=== PATIENT | male | born 1955 | race Caucasian/White ===

== ENCOUNTER 2017-04-09 08:34 | Day surgery (SDC) | payer OTHER ==
[2017-04-09] VITALS (11 sets, daily range): BP systolic 128–166; BP diastolic 70–84; PULSE 80–100; RESP 16–22; Ht 165.1 cm; Wt 84.3 kg
[~2017-04-09] VITALS: Ht 165.1 cm; Wt 84.3 kg
[~2017-04-09 08:34] MED LIST: CYCLOPENTOLATE 1% 2 ML OPH OPER SCH; DICLOFENAC 0.1% 2.5 ML OPH OPER SCH; LACTATED RINGER'S 1,000 ML IV* SCH; MOXIFLOXACIN 0.5% 3 ML OPH OPER SCH; PHENYLephrine 2.5% 15 ML OPH OPER SCH; TROPICAMIDE 1% 15 ML OPH OPER SCH; TROPICAMIDE 1% 2 ML OPH OPER SCH
[2017-04-09] MEDS ORDERED: TRYPAN BLUE 0.5 ML SYG IO SCH (09:30)
[2017-04-09] MEDS ORDERED: TROPICAMIDE 1% 3 ML OPH ONE (09:38)
[2017-04-09] MEDS ORDERED: LOSA25TA5 PO (09:53)
[2017-04-09] MEDS ORDERED: METF1000 PO (09:53)
[2017-04-09] MEDS ORDERED: ATOR20TA38 PO (09:53)
[2017-04-09] MEDS ORDERED: DICL2.5D11 RIGHT EYE (09:54)
[2017-04-09] MEDS ORDERED: VIGA RIGHT EYE (09:54)
[2017-04-09] MEDS ORDERED: PRD1OP5 RIGHT EYE (09:54)
[2017-04-09] MEDS ORDERED: LABETALOL HCL 20MG INJ IV PRN (11:30)
[2017-04-09] MEDS ORDERED: hydrALAzine 20 MG INJ IV PRN (11:30)
[2017-04-09] MEDS ORDERED: ONDANSETRON 4 MG INJ IV PRN (11:30)
[2017-04-09] MEDS ORDERED: OXYCODONE/ACETAMINOPHEN (5/325) TAB PO PRN ×2 (11:30)
[2017-04-09] MEDS ORDERED: MIDAZOLAM 1 MG/ML 2 ML INJ ONE (11:32)
[2017-04-09] MEDS ORDERED: FENTAnyl 50 MCG/ML VIAL ONE (11:32)
[2017-04-09] MEDS ORDERED: EPINEPHrine 1 MG INJ ONE (12:04)
[2017-04-09] MEDS ORDERED: TOBRAMYCIN/DEXAMETH 3.5 GM OPH OINT ONE (12:04)
[2017-04-09] MEDS ORDERED: LIDOCAINE 1% (MPF) 10 ML INJ ONE (12:04)
[2017-04-09] MEDS ORDERED: TETRACAINE 0.5% 4 ML OPH ONE (12:04)
[2017-04-09] MEDS ORDERED: LIDOCAINE 1% (MPF) 10 ML INJ INJ ONE (12:15)
[2017-04-09] MEDS ORDERED: TETRACAINE 0.5% 4 ML OPH RIGHT EYE ONE (12:15)
[2017-04-09] MEDS ORDERED: TOBRAMYCIN 0.3% 3.5 GM OPH OINT RIGHT EYE ONE (12:47)
--- NOTE | 2017-04-09 13:13 | HPN ---
Date/Time of Note Date/Time of Note DATE: 04/09/17 TIME: 13:13 Interval H&P Admission Note Pt. seen H&P reviewed: No system changes [facility] Apr 09, 2017 13:13
--- NOTE | 2017-04-09 13:19 | OPR ---
Date/Time of Note Date/Time of Note DATE: 04/09/17 TIME: 13:14 Operative Report Free Text/Dictation Patient: Bharath Moralez Date of Surgery: 04/09/2017 Surgeon: Diego Siu MD PreOp Diagnosis: Other mature cataract, right eye PostOp Diagnosis: Same Implant: SN60WF 20.5D Procedures: 1. Complex phacoemulsification and extraction of lens, right eye, requiring the use of Trypan blue 2. Intraocular lens implantation, right eye Anesthesia: Monitored anesthesia care with topical anesthesia Complications: None Estimated blood loss: <1mL Description of Procedure: The patient suffers from a visually significant cataract of the right eye. After discussing the option of cataract surgery, including the risks and benefits, the patient voiced understanding and elected to proceed today. The patient was identified in the pre-op holding area where the right eye was marked. The patient was then brought to the operating room where a time out was called, identifying the patient, the procedure, and the correct site. Tetracaine eye drops were applied. The right eye was then prepped and draped in usual sterile ophthalmic fashion. An eyelid speculum was placed into the operative eye. A paracentesis was made superiorly with a side port blade. 1% preservative free lidocaine was injected into the anterior chamber. Trypan blue was injected to fill the anterior chamber to improve visualization given the patient's mature, dense lens. After 30 seconds this was irrigated out with BSS. Next, Viscoat was injected to deepen the anterior chamber. A 2.4 mm keratome was used to create a temporal corneal wound. A continuous curvilinear capsulorrhexis was started with a bent cystitome and completed with Utrata forceps. Hydrodissection was performed with a cannula and BSS and the lens was rotated. Phacoemulsification of the lens nucleus was accomplished in a [id number]-cif-eywiezd technique. Remaining residual cortex was removed with irrigation and aspiration. The posterior lens capsule was noted to be intact. Provisc was used to inflate the capsular bag. The lens was injected into the capsular bag. Viscoelastic was removed with irrigation and aspiration. The anterior chamber was filled with BSS to physiologic pressure and the wounds were hydrated and watertight. The eyelid speculum was removed and tobradex ointment was placed into the eye. A cisneros shield was placed over the operative eye. The patient tolerated the procedure well and was in stable condition on the way to the recovery room. Preoperative Diagnosis other mature cataract, right eye Postoperative Diagnosis same Operation/Procedure Performed 1. Complex phacoemulsification and extraction of lens, right eye, requiring the use of trypan blue 2. Intraocular lens implantation, right eye Surgeon see signature line Kerfer Machine Operator none Anesthesia Type: MAC Estimated Blood Loss: minimal Transfusion none Specimen none Grafts/Implants SN60WF 20.5D Tubes/Drains None Complications none Procedure Description see full op note above [facility] Apr 09, 2017 13:19
== END 2017-04-09 15:05 | disposition home or self-care (01) ==
LOC: SDS 08:34
PROVIDERS: ATTEND Ophthalmology
DX: H25.11 Age-related nuclear cataract, right eye (principal); I10 Essential (primary) hypertension; E78.5 Hyperlipidemia, unspecified; E11.9 Type 2 diabetes mellitus without complications
CPT/HCPCS: 66982; 82962; J0171; J2250; J3010; J7120; V2632